=== PATIENT | female | born 1975 | race Caucasian/White ===

== ENCOUNTER 2022-06-23 12:01 | Emergency (ER) | payer OTHER, SELFPAY ==
--- NOTE | ~2022-06-23 | XR_ITS ---
Left ankle Technique: AP, oblique, and lateral views were obtained. Clinical History: Pain Findings: No acute fracture or dislocation is seen. Osseous alignment is anatomic. Ankle mortise and other visualized joint spaces are preserved. Soft tissues are otherwise unremarkable. Impression: Unremarkable left ankle. Reviewed, dictated and finalized at location . [facility] Impression: Unremarkable left ankle.
--- NOTE | ~2022-06-23 | XR_ITS ---
EXAMINATION: XR foot LT min 3V DATE: 06/23/2022 14:08 INDICATION: Left foot pain TECHNIQUE: Dorsoplantar, lateral, and 2 oblique views of the left foot were obtained. COMPARISON: None. FINDINGS: Bone alignment is normal. There is no fracture. There is mild osteoarthritis of multiple in terphalangeal joints. Soft tissue swelling is seen lateral to the fifth metatarsophalangeal joint. Do rsal and plantar calcaneal enthesophytes are noted. IMPRESSION: 1. Lateral soft tissue swelling without acute osseous abnormality. Reviewed, dictated and finalized at location [facility]
--- NOTE | ~2022-06-23 | XR_ITS ---
AP and lateral views of the left tibia/fibula Clinical History: Pain Findings: No acute fracture or dislocation is seen. Osseous alignment is anatomic. Joint spaces are p reserved without significant erosive or degenerative change. Soft tissues are unremarkable. Impression: Unremarkable left tib-fib radiographs. Reviewed, dictated and finalized at [facility]. [facility] Impression: Unremarkable left tib-fib radiographs.
[2022-06-23 12:41] VITALS: BP 143/99; PULSE 90; RESP 16; TEMP 36.4; O2SAT 96
[2022-06-23] MEDS: IBUPROFEN 600 MG TABLET PO (14:22)
[2022-06-23] MEDS: TETANUS,DIPHTHERIA,AC PERTUSSIS ADULT (0.5 ML) BOOSTRIX IM (14:23)
--- NOTE | 2022-06-23 15:15 | ED.FALL ---
HPI - Fall General Chief Complaint: Fall Stated Complaint: fall, left leg injury Time Seen by Provider: 06/23/22 13:10 Source: RN notes reviewed History of Present Illness HPI Narrative: Patient presents emergency department from home for fall. Patient states fall happened approximately an hour and a half prior to arrival states she was getting her mail and been coming down when she fell down approximately 2 stairs. She states she scraped the front of her left coleman as well as sprained her left ankle she notes pain in her left coleman and ankle since a fall she is she did hit her head but not having loss of consciousness she denies any headache at this time she denies any other pain or injury. States she has not taken anything for the symptoms. States she was able to get to the car but is now been put full weight on the left ankle. Unsure of last tetanus shot Related Data Allergies Allergy/AdvReac Type Severity Reaction Status Date / Time No Known Allergies Allergy Verified 06/23/22 13:10 Review of Systems Review of Systems: Gen.: Denies fevers or chills Eyes: Denies eye pain or visual change ENT: Denies facial pain Respiratory: Denies shortness of breath or cough CV: Denies chest pain GI: Denies abdominal pain nausea, emesis Musculoskeletal: See HPI Neuro: Denies numbness, tingling, weakness or focal weakness Skin: Denies rash Except as documented, all other systems reviewed and negative FOR[facility]LY [facility] Past Medical History Medical History (Updated 06/23/22 @ 15:19 by Catrachito Duffy DO) Patient denies significant medical history Social History Social History (Updated 06/23/22 @ 15:19 by Catrachito Duffy DO) Smoking status: Never smoker Course Course Emergency Course: Discussed with patient results of workup and diagnosis. Discussed need for follow-up with primary care, proper use of medication, and reasons to return to the emergency department. Patient understands and agrees to current treatment plan Vital Signs Vital signs: Vital Signs Temperature 97.5 F L 06/23/22 12:41 Pulse Rate 90 06/23/22 12:41 Respiratory Rate 16 06/23/22 12:41 Blood Pressure 143/99 H 06/23/22 12:41 Pulse Oximetry 96 06/23/22 12:41 Temperature 97.5 F L 06/23/22 12:41 Pulse Rate 90 06/23/22 12:41 Respiratory Rate 16 12/29/22 12:41 Blood Pressure 143/99 H 06/23/22 12:41 Pulse Oximetry 96 06/23/22 12:41 MDM - Fall Imaging Data Radiologist's impression: ITS Impressions Ankle X-Ray 06/23/22 13:24 Impression: Unremarkable left ankle. Tibia/Fibula X-Ray 06/23/22 13:24 Impression: Unremarkable left tib-fib radiographs. Foot X-Ray 06/23/22 14:16 IMPRESSION: 1. Lateral soft tissue swelling without acute osseous abnormality. Discharge Plan Discharge Clinical Impression: Left ankle sprain, Abrasion of left leg, Contusion of left leg Patient Disposition: Home, Self-Care Condition: Stable Instructions: Antibiotic Form, Ankle Sprain (ED), Abrasion (ED) Additional Instructions: Return for increasing pain numbness or tingling the extremities or any other symptoms of concern Prescriptions: New ibuprofen 600 mg tablet 600 mg PO TID PRN (Reason: pain) Qty: 14 0RF Follow-up/Referrals: PHYSICIAN NOT ON STAFF,NONSTAFF [Primary Care Provider] - Estrella Dominguez DO [Physician] - (Follow-up in 1-2 days for further on-call physician treatment and evaluation) Time of Disposition: 15:16
== END 2022-06-23 15:24 | disposition home or self-care (01) ==
PROVIDERS: Emergency Provider Emergency Medicine
DX: S93.402A Sprain of unspecified ligament of left ankle, initial encounter (principal); S80.12XA Contusion of left lower leg, initial encounter; S80.812A Abrasion, left lower leg, initial encounter; Z23 Encounter for immunization; W10.9XXA Fall (on) (from) unspecified stairs and steps, initial encounter
CPT/HCPCS: 73590; 73610; 73630; 90471; 90715; 99284; A9270